=== PATIENT | male | born 1975 | race African-American/Black ===

== ENCOUNTER 2019-04-01 17:57 | Emergency (ER) | payer OTHER ==
[~2019-04-01] VITALS: Ht 182.9 cm; Wt 74.8 kg
[2019-04-01 18:49] VITALS: BP 145/99
== END 2019-04-01 18:45 | disposition home or self-care (01) ==
LOC: ER 17:57
DX: M25.462 Effusion, left knee (principal); I10 Essential (primary) hypertension; J45.909 Unspecified asthma, uncomplicated; M10.9 Gout, unspecified

== ENCOUNTER 2019-04-27 10:56 | Emergency (ER) | payer OTHER ==
[~2019-04-27] VITALS: Ht 185.4 cm; Wt 88.5 kg
[2019-04-27 10:57] VITALS: BP 171/99
[2019-04-27 11:32] LABS: HEMATOCRIT 42.6 % (42.0-52.0); HEMOGLOBIN 14.5 gm/dL (14.0-18.0); MCH 29.6 pg (26.0-34.0); MCV 87.1 fL (80.0-100.0); RBC 4.89 mil/uL (4.50-6.00); WBC 8.6 thou/uL (4.0-11.0)
[2019-04-27 11:40] LABS: CREATININE 0.9 mg/dL (0.7-1.3); POTASSIUM 3.9 mmol/L (3.5-5.1)
[2019-04-27 11:43] LABS: URIC ACID* 6.8 mg/dL (2.6-7.2)
[2019-04-27] MEDS ORDERED: INDOMETHACIN 5050 M1 PO (11:50)
[2019-04-27] MEDS ORDERED: NORCO 7.5-3251 EACH PO (11:50)
== END 2019-04-27 11:55 | disposition home or self-care (01) ==
LOC: ER 10:56
PROVIDERS: Physician Assistant
DX: M25.561 Pain in right knee (principal); M25.461 Effusion, right knee; I10 Essential (primary) hypertension; J45.909 Unspecified asthma, uncomplicated; M10.9 Gout, unspecified; Z87.891 Personal history of nicotine dependence